=== PATIENT | female | born 1960 | race Caucasian/White ===

== ENCOUNTER 2021-07-14 08:03 | Emergency (ER) | payer OTHER ==
[2021-07-14] MEDS: Ondansetron 4 MG/2 ML SDV IVPUSH ONE (08:20)
[2021-07-14] MEDS: Sodium Chloride 0.9% 1,000 ML IV ONE ×2 (08:20→09:27)
[2021-07-14] MEDS: Metoclopramide 10 MG/2 ML SDV IVPUSH ONE (08:55)
[2021-07-14] MEDS ORDERED: Sodium Chloride 0.9% 10 ML Syringe FLUSH PRN (09:04)
[2021-07-14 09:18] LABS: ANION GAP 14.3 mmol/L (5-15); CHLORIDE,CL 99 mmol/L (98-107); SODIUM,NA 136 mmol/L (136-145)
[2021-07-14 09:24] LABS: CORONAVIRUS COVID-19 NAA NEGATIVE (NEGATIVE)
[2021-07-14] MEDS: Iopamidol 755 Mg/ML 75 ML Bottle IVPUSH ONE (10:17)
[2021-07-14] MEDS: Sodium Chloride 0.9% 50 ML IV SCH (10:17)
[2021-07-14] MEDS ORDERED: Ondansetron 4 MG Tab.DIS PO PRN (11:07)
[2021-07-14] MEDS: Sodium Chloride 0.9% 1,000 ML ONE (11:19)
== END 2021-07-14 11:15 | disposition home or self-care (01) ==
LOC: KA.ED 08:03
DX: A08.4 Viral intestinal infection, unspecified (principal); K56.7 Ileus, unspecified; R11.2 Nausea with vomiting, unspecified; R19.7 Diarrhea, unspecified; E78.00 Pure hypercholesterolemia, unspecified; K21.9 Gastro-esophageal reflux disease without esophagitis; Z91.048 Other nonmedicinal substance allergy status; Z79.899 Other long term (current) drug therapy; Z20.822 Contact with and (suspected) exposure to COVID-19
CPT/HCPCS: 0240U; 36415; 74022; 74177; 80053; 81001; 82150; 83690; 85025; 96374; 96375; 99284; 99284-25; J2405; J2765; J7030; Q9967

== ENCOUNTER 2023-06-23 08:59 | Day surgery (SDC) | payer OTHER ==
[2023-06-23] MEDS ORDERED: Ondansetron 4 MG/2 ML SDV IV ONE (09:00)
[2023-06-23] MEDS ORDERED: Sodium Chloride 0.9% 10 ML Syringe FLUSH PRN (09:00)
[2023-06-23] MEDS: Lactated Ringers 1,000 ML IV SCH (09:15)
[2023-06-23] MEDS ORDERED: Midazolam 1 MG/ML 2 ML SDV ONE (10:53)
[2023-06-23] MEDS ORDERED: Propofol 200 MG/20 ML SDV ONE (10:53)
== END 2023-06-23 13:06 | disposition home or self-care (01) ==
LOC: KA.SDS 08:59
PROVIDERS: ATTEND Family Medicine
DX: K63.5 Polyp of colon (principal); K52.832 Lymphocytic colitis; K64.8 Other hemorrhoids; K21.9 Gastro-esophageal reflux disease without esophagitis; J43.2 Centrilobular emphysema; N18.2 Chronic kidney disease, stage 2 (mild); E78.5 Hyperlipidemia, unspecified; F41.9 Anxiety disorder, unspecified; F32.A Depression, unspecified; F17.210 Nicotine dependence, cigarettes, uncomplicated; Z79.899 Other long term (current) drug therapy
CPT/HCPCS: 45380; J2250; J2405; J2704; J7120; J3490